=== PATIENT | female | born 1970 | race Caucasian/White ===

== ENCOUNTER 2021-01-21 13:45 | Inpatient (IN) | payer OTHER ==
[~2021-01-21] VITALS: Ht 157.5 cm; Wt 64.9 kg
[~2021-01-21 13:45] MED LIST: COZAAR50 MG PO; LOSARTAN POTASS50 MG PO; SYNTHROID50 MCG PO; SYNTTHROID PO; ULTRACET PO
[2021-01-21] MEDS ORDERED: CANDESAR PO (15:24)
[2021-01-21] MEDS ORDERED: HYDROCHLO PO (15:25)
[2021-01-21] MEDS ORDERED: ATORVAST PO (15:25)
[2021-01-21] MEDS ORDERED: FENOFI PO (15:26)
[2021-01-22] MEDS ORDERED: CANDESARTAN CIL32 MG (08:25)
[2021-01-22] MEDS ORDERED: SYNTHROID50 MCG (08:26)
[2021-01-22] MEDS ORDERED: CANDESARTAN-HC1 EAC1 (08:26)
[2021-01-22] MEDS ORDERED: FENOFIBRATE160 MG (08:26)
[2021-01-22] MEDS ORDERED: HYDROCHLOROTH12.5 MG (08:26)
[2021-01-22] MEDS ORDERED: ATORVASTATIN CA10 MG (08:26)
[2021-01-22] MEDS ORDERED: LEVOCETIRIZINE D5 MG (08:26)
== END 2021-01-24 17:51 | disposition home or self-care (01) | DRG 741 ==
LOC: O/R 01-22 04:50 → OB/GYN 01-22 04:50 → SURH 01-22 13:45 → OB/GYN 01-22 15:18
PROVIDERS: ADMIT Specialist; ATTEND Specialist
PROC: 0UB70ZZ Excision of Bilateral Fallopian Tubes, Open Approach (ICD-10-PCS; 2021-01-22)
PROC: 0UT90ZZ Resection of Uterus, Open Approach (ICD-10-PCS; principal; 2021-01-22 10:00)
DX: C54.1 Malignant neoplasm of endometrium (principal); N80.0 Endometriosis of uterus; D25.1 Intramural leiomyoma of uterus; N93.9 Abnormal uterine and vaginal bleeding, unspecified; I10 Essential (primary) hypertension